=== PATIENT | female | born 1995 | race Caucasian/White ===

== ENCOUNTER 2020-06-02 15:54 | Emergency (ER) | payer BC ==
--- NOTE | 2020-06-02 16:11 | ERPHSYRPT ---
- History of Present Illness Time Seen by Provider: 06/02/20 16:11 Source: patient Exam Limitations: no limitations Physician History: This is a 25-year-old white female who presents with 5-day history of worsening flu symptoms including cough, sore throat, muscle aches, fever, headache, mild shortness of breath, nausea and loss of taste and smell. She has no known ex posure to individuals who have tested positive for COVID-19 virus. Timing/Duration: day(s) (5) Cough Quality/Degree: mild Possible Cause: no prior episodes Associated Symptoms: chills, cough, headache, shortness of breath, sore throat Allergies/Adverse Reactions: No Known Drug Allergies Allergy (Unverified 06/02/20 16:20) Home Medications: Buprenorphine HCl/Naloxone HCl [Buprenorphin-Naloxon 8-2 mg Sl] 1 ea DAILY 06/02/20 [History] Travel Risk - International Travel Have you traveled outside of the country in past 3 weeks: No - Coronavirus Screening Are you exhibiting any of the following symptoms?: Yes Symptoms: Cough: New Onset, Shortness of Breath, Loss of Taste or Smell, Headaches/Body Aches/Fatigue Close contact with a COVID-19 positive Pt in past 14-21 Days: No - Review of Systems Constitutional: Chills, Weakness Eyes: No Symptoms Ears, Nose, & Throat: Throat Pain Respiratory: Cough, Dyspnea Cardiac: No Symptoms Abdominal/Gastrointestinal: No Symptoms Genitourinary Symptoms: No Symptoms Musculoskeletal: Arthralgias, Myalgias Skin: No Symptoms Neurological: No Symptoms Psychological: No Symptoms Endocrine: No Symptoms Hematologic/Lymphatic: No Symptoms Immunological/Allergic: No Symptoms All Other Systems: Reviewed and Negative - Past Medical History Pertinent Past Medical History: No Neurological History: No Pertinent History ENT History: No Pertinent History Cardiac History: No Pertinent History Respiratory History: No Pertinent History Endocrine Medical History: No Pertinent History Musculoskeletal History: No Pertinent History GI Medical History: No Pertinent History History: No Pertinent History Psycho-Social History: No Pertinent History Female Reproductive Disorders: No Pertinent History - Past Surgical History Past Surgical History: No Neuro Surgical History: No Pertinent History Cardiac: No Pertinent History Respiratory: No Pertinent History Gastrointestinal: No Pertinent History Genitourinary: No Pertinent History Musculoskeletal: No Pertinent History Female Surgical History: No Pertinent History - Nursing Vital Signs Nursing Vital Signs: Initial Vital Signs Temperature 98.8 F 09/13/20 16:13 Pulse Rate 87 06/02/20 16:13 Respiratory Rate 18 06/02/20 16:13 Blood Pressure 147/89 06/02/20 16:13 O2 Sat by Pulse Oximetry 99 06/02/20 16:13 Pain Scale Pain Intensity 7 - Physical Exam General Appearance: no apparent distress, alert, anxiety Eye Exam: PERRL/EOMI, eyes nml inspection Ears, Nose, Throat Exam: normal ENT inspection, moist mucous membranes Neck Exam: normal inspection, non-tender, supple, full range of motion Respiratory Exam: normal breath sounds, lungs clear, airway intact, No chest tenderness, No respiratory distress Cardiovascular Exam: regular rate/rhythm, normal heart sounds, normal peripheral pulses Gastrointestinal/Abdomen Exam: soft, normal bowel sounds, No tenderness Pelvic Exam: not done Rectal Exam: not done Extremity Exam: normal inspection, normal range of motion, pelvis stable Neurologic Exam: alert, oriented x 3, cooperative, 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 nml as tested, nml cerebellar function, nml station & gait, sensation nml Skin Exam: normal color, warm, dry Lymphatic Exam: No adenopathy SpO2 Interpretation: normal O2 Delivery: Room Air Ordered Tests: Active Orders 24 hr Category Date Time Status IV Insertion STAT Care 06/02/20 16:14 Active CHEST 1 VIEW (PORTABLE) Stat Exams 06/02/20 16:14 Taken BLOOD CULTURE Stat Lab 06/02/20 16:14 Ordered CBC W DIFF Stat Lab 06/02/20 16:30 Completed CMP Stat Lab 06/02/20 16:30 Completed HCG,QUALITATIVE URINE Stat Lab 06/02/20 16:30 Completed Lactic Acid Stat Lab 06/02/20 16:14 Completed Hill Screen Stat Lab 06/02/20 16:30 Completed UA W/RFX UR CULTURE Stat Lab 06/02/20 16:30 Completed Medication Summary Discontinued Medications Generic Name Dose Route Start Last Admin Trade Name Freq PRN Reason Stop Dose Admin Sodium Chloride 1,000 mls @ 999 mls/hr 06/02/20 16:14 06/02/20 16:50 Sodium Chloride 0.9% 1000 Ml IV 06/02/20 17:14 999 mls/hr .Q1H1M STA Administration Sodium Chloride Confirm 06/02/20 16:44 Sodium Chloride 0.9% 1000 Ml Administered 06/02/20 16:45 Dose 1,000 mls @ ud .ROUTE .STK-MED ONE Lab/Rad Data: Laboratory Result Diagrams 06/02/20 16:30 06/02/20 16:30 Laboratory Results 06/02/20 06/02/20 06/02/20 Range/Units 16:30 16:30 16:30 WBC (4.0-10.5) K/mm3 RBC (4.1-5.4) M/mm3 Hgb (12.0-16.0) gm/dl Hct (35-47) % MCV (78-100) fl MCH (26-32) pg MCHC (32-36) g/dl RDW (11.5-14.0) % Plt Count (150-450) K/mm3 MPV (7.5-11.0) fl Gran % (36.0-66.0) % Eos # (Auto) (0-0.5) Absolute Lymphs (auto) (1.0-4.6) Absolute Monos (auto) (0.0-1.3) Lymphocytes % (24.0-44.0) % Monocytes % (0.0-12.0) % Eosinophils % (0.00-5.0) % Basophils % (0.0-0.4) % Absolute Granulocytes (1.4-6.9) Basophils # (0-0.4) Sodium (137-145) mmol/L Potassium (3.5-5.1) mmol/L Chloride (98-107) mmol/L Carbon Dioxide (22-30) mmol/L Anion Gap (5-15) MEQ/L BUN (7-17) mg/dL Creatinine (0.52-1.04) mg/dL Estimated GFR ML/MIN Glucose (74-106) mg/dL Lactic Acid (0.4-2.0) Calcium (8.4-10.2) mg/dL Total Bilirubin (0.2-1.3) mg/dL AST (14-36) U/L ALT (0-35) U/L Alkaline Phosphatase (38-126) U/L Serum Total Protein (6.3-8.2) g/dL Albumin (3.5-5.0) g/dL Urine Color YELLOW (YELLOW) Urine Appearance CLOUDY (CLEAR) Urine pH 7.0 (5-6) Ur Specific Marbury 1.014 (1.005-1.025) Urine Protein NEGATIVE (Negative) Urine Ketones NEGATIVE (NEGATIVE) Urine Blood NEGATIVE (0-5) Vickey/ul Urine Nitrite NEGATIVE (NEGATIVE) Urine Bilirubin NEGATIVE (NEGATIVE) Urine Urobilinogen NEGATIVE (0-1) mg/dL Ur Leukocyte Esterase NEGATIVE (NEGATIVE) Urine WBC (Auto) NONE (0-5) /HPF Urine RBC (Auto) NONE (0-2) /HPF U Epithel Cells (Auto) RARE (FEW) /HPF Urine Bacteria (Auto) NONE (NEGATIVE) /HPF Amorphous Crystals FEW (NEGATIVE) /HPF Urine Mucus (Auto) SLIGHT (NEGATIVE) /HPF Urine Culture Reflexed NO (NO) Urine Glucose NEGATIVE (NEGATIVE) mg/dL Urine HCG, Qual NEGATIVE (Negative) Monoscreen (Negative) Influenza Type A Ag NEGATIVE (NEGATIVE) Influenza Type B Ag NEGATIVE (NEGATIVE) RSV (PCR) NEGATIVE (Negative) Group A Strep Antibody NOT DETECTED (NEGATIVE) 06/02/20 06/02/20 06/02/20 Range/Units 16:30 16:30 16:30 WBC 10.1 (4.0-10.5) K/mm3 RBC 4.12 (4.1-5.4) M/mm3 Hgb 13.7 (12.0-16.0) gm/dl Hct 41.7 (35-47) % MCV 101.2 H (78-100) fl MCH 33.3 H (26-32) pg MCHC 32.9 (32-36) g/dl RDW 13.0 (11.5-14.0) % Plt Count 231 (150-450) K/mm3 MPV 11.1 H (7.5-11.0) fl Gran % 53.0 (36.0-66.0) % Eos # (Auto) 1.33 H (0-0.5) Absolute Lymphs (auto) 2.51 (1.0-4.6) Absolute Monos (auto) 0.84 (0.0-1.3) Lymphocytes % 24.9 (24.0-44.0) % Monocytes % 8.3 (0.0-12.0) % Eosinophils % 13.2 H (0.00-5.0) % Basophils % 0.6 (0.0-0.4) % Absolute Granulocytes 5.36 (1.4-6.9) Basophils # 0.06 (0-0.4) Sodium 137 (137-145) mmol/L Potassium 3.5 (3.5-5.1) mmol/L Chloride 103 (98-107) mmol/L Carbon Dioxide 27 (22-30) mmol/L Anion Gap 10.1 (5-15) MEQ/L BUN 7 (7-17) mg/dL Creatinine 0.47 L (0.52-1.04) mg/dL Estimated GFR > 60.0 ML/MIN Glucose 93 (74-106) mg/dL Lactic Acid (0.4-2.0) Calcium 9.2 (8.4-10.2) mg/dL Total Bilirubin 0.30 (0.2-1.3) mg/dL AST 26 (14-36) U/L ALT 17 (0-35) U/L Alkaline Phosphatase 53 (38-126) U/L Serum Total Protein 7.1 (6.3-8.2) g/dL Albumin 4.4 (3.5-5.0) g/dL Urine Color (YELLOW) Urine Appearance (CLEAR) Urine pH (5-6) Ur Specific Marbury (1.005-1.025) Urine Protein (Negative) Urine Ketones (NEGATIVE) Urine Blood (0-5) Vickey/ul Urine Nitrite (NEGATIVE) Urine Bilirubin (NEGATIVE) Urine Urobilinogen (0-1) mg/dL Ur Leukocyte Esterase (NEGATIVE) Urine WBC (Auto) (0-5) /HPF Urine RBC (Auto) (0-2) /HPF U Epithel Cells (Auto) (FEW) /HPF Urine Bacteria (Auto) (NEGATIVE) /HPF Amorphous Crystals (NEGATIVE) /HPF Urine Mucus (Auto) (NEGATIVE) /HPF Urine Culture Reflexed (NO) Urine Glucose (NEGATIVE) mg/dL Urine HCG, Qual (Negative) Monoscreen NEGATIVE (Negative) Influenza Type A Ag (NEGATIVE) Influenza Type B Ag (NEGATIVE) RSV (PCR) (Negative) Group A Strep Antibody (NEGATIVE) 06/02/20 Range/Units 16:14 WBC (4.0-10.5) K/mm3 RBC (4.1-5.4) M/mm3 Hgb (12.0-16.0) gm/dl Hct (35-47) % MCV (78-100) fl MCH (26-32) pg MCHC (32-36) g/dl RDW (11.5-14.0) % Plt Count (150-450) K/mm3 MPV (7.5-11.0) fl Gran % (36.0-66.0) % Eos # (Auto) (0-0.5) Absolute Lymphs (auto) (1.0-4.6) Absolute Monos (auto) (0.0-1.3) Lymphocytes % (24.0-44.0) % Monocytes % (0.0-12.0) % Eosinophils % (0.00-5.0) % Basophils % (0.0-0.4) % Absolute Granulocytes (1.4-6.9) Basophils # (0-0.4) Sodium (137-145) mmol/L Potassium (3.5-5.1) mmol/L Chloride (98-107) mmol/L Carbon Dioxide (22-30) mmol/L Anion Gap (5-15) MEQ/L BUN (7-17) mg/dL Creatinine (0.52-1.04) mg/dL Estimated GFR ML/MIN Glucose (74-106) mg/dL Lactic Acid 0.8 (0.4-2.0) Calcium (8.4-10.2) mg/dL Total Bilirubin (0.2-1.3) mg/dL AST (14-36) U/L ALT (0-35) U/L Alkaline Phosphatase (38-126) U/L Serum Total Protein (6.3-8.2) g/dL Albumin (3.5-5.0) g/dL Urine Color (YELLOW) Urine Appearance (CLEAR) Urine pH (5-6) Ur Specific Mar[place] (1.005-1.025) Urine Protein (Negative) Urine Ketones (NEGATIVE) Urine Blood (0-5) Vickey/ul Urine Nitrite (NEGATIVE) Urine Bilirubin (NEGATIVE) Urine Urobilinogen (0-1) mg/dL Ur Leukocyte Esterase (NEGATIVE) Urine WBC (Auto) (0-5) /HPF Urine RBC (Auto) (0-2) /HPF U Epithel Cells (Auto) (FEW) /HPF Urine Bacteria (Auto) (NEGATIVE) /HPF Amorphous Crystals (NEGATIVE) /HPF Urine Mucus (Auto) (NEGATIVE) /HPF Urine Culture Reflexed (NO) Urine Glucose (NEGATIVE) mg/dL Urine HCG, Qual (Negative) Monoscreen (Negative) Influenza Type A Ag (NEGATIVE) Influenza Type B Ag (NEGATIVE) RSV (PCR) (Negative) Group A Strep Antibody (NEGATIVE) - Progress Progress: re-examined Air Movement: good Progress Note: 06/02/20 18:39 X-ray shows no acute pulmonary process. Blood Culture(s) Obtained: Yes Antibiotics given: Yes Counseled pt/family regarding: lab results, diagnosis, need for follow-up, rad results - Departure Departure Disposition: Home Clinical Impression: Bronchitis Condition: Stable Critical Care Time: No Referrals: DOCTOR,NO FAMILY [Primary Care Provider] - Additional Instructions: Drink plenty of fluids. Avoid exposure to any kind of smoke. Take your medication as prescribed. Quarantine yourself as directed until you obtain the results of your COVID-19 test. Return to the emergency department if your symptoms worsen. Prescriptions: Hydrocodone Bit/Acetaminophen [Hydrocodone-Acetaminophen Soln] 10 ml PO Q6H #120 ml Azithromycin 250 mg [Zithromax 250 MG TABLET] 250 mg PO ZPACK #6 tablet
[2020-06-02] MEDS ORDERED: Sodium Chloride 0.9% 1000 ML 1,000 ML IV STA (16:14)
[2020-06-02] MEDS ORDERED: Sodium Chloride 0.9% 1000 ML 1,000 ML ONE (16:44)
[2020-06-02 16:58] LABS: Absolute Neutrophil Ct (ANC) 5.36 (1.4-6.9); BASOPHIL % 0.6 % (0.0-0.4); Basophil (Absolute #) 0.06 (0-0.4); Eosinophil % 13.2 % (0.00-5.0); Eosinophil (Absolute #) 1.33 (0-0.5); Hematocrit 41.7 % (35-47); Hemoglobin 13.7 gm/dl (12.0-16.0); Lymphocyte (Absolute #) 2.51 (1.0-4.6); Lymphocytes % 24.9 % (24.0-44.0); Mean Cell Volume 101.2 fl (78-100); Mean Corpuscular Hemoglobin 33.3 pg (26-32); Mean Corpuscular Hgb Concent. 32.9 g/dl (32-36); Mean Platelet Volume 11.1 fl (7.5-11.0); Monocyte (Absolute #) 0.84 (0.0-1.3); Monocytes % 8.3 % (0.0-12.0); Platelet Count 231 K/mm3 (150-450); Red Blood Count 4.12 M/mm3 (4.1-5.4); White Blood Count 10.1 K/mm3 (4.0-10.5)
[2020-06-02 17:10] LABS: ALBUMIN 4.4 g/dL (3.5-5.0); ALKALINE PHOSPHATASE 53 U/L (38-126); ANION GAP 10.1 MEQ/L (5-15); BLOOD UREA NITROGEN 7 mg/dL (7-17); CHLORIDE 103 mmol/L (98-107); Calcium 9.2 mg/dL (8.4-10.2); Carbon Dioxide 27 mmol/L (22-30); Creatinine 1 0.47 mg/dL (0.52-1.04); EST GLOMERULAR FILTRATION RATE > 60.0 ML/MIN; Glucose 93 mg/dL (74-106); Potassium 3.5 mmol/L (3.5-5.1); SGOT/AST 26 U/L (14-36); SGPT/ALT 17 U/L (0-35); SODIUM 137 mmol/L (137-145); Total Protein 7.1 g/dL (6.3-8.2)
[2020-06-02 17:11] LABS: Amourphous Crystal FEW /HPF (NEGATIVE); Appearance CLOUDY (CLEAR); Bilirubin NEGATIVE (NEGATIVE); Blood NEGATIVE Ery/ul (0-5); Epithelial Cells RARE /HPF (FEW); Glucose NEGATIVE (NEGATIVE); Ketones NEGATIVE (NEGATIVE); Leukocyte Esterase NEGATIVE (NEGATIVE); Mucus SLIGHT /HPF (NEGATIVE); Nitrite NEGATIVE (NEGATIVE); Protein,Urine Dip NEGATIVE (Negative); Specific Gravity 1.014 (1.005-1.025); Urobilinogen NEGATIVE mg/dL (0-1)
[2020-06-02 17:17] LABS: Group A Strep NOT DETECTED (NEGATIVE)
[2020-06-02 17:26] LABS: INFLUENZA A NEGATIVE (NEGATIVE); INFLUENZA B NEGATIVE (NEGATIVE); RESPIRATORY SYNCTIAL VIRUS NEGATIVE (Negative)
[2020-06-02] MEDS ORDERED: ROCEPHIN 1 Gm-D5w 50 ml Bag** 1 G/50 ML IVPB IV STA (18:43)
[2020-06-02] MEDS ORDERED: HYDROCODONE-ACETAMIN 2.5-108/5 ML SOLUTION ONE (19:15)
[2020-06-02] MEDS ORDERED: ROCEPHIN 1 Gm-D5w 50 ml Bag** 1 G/50 ML IVPB IV ONE (19:15)
[2020-06-02] MEDS: HYDROCODONE-ACETAMIN 2.5-108/5 ML SOLUTION PO STA ×2 (19:16→19:25)
[2020-06-02 19:27] VITALS: BP 119/85; PULSE 69; O2SAT 99
[2020-06-02] MEDS ORDERED: Tessalon Perles 100 MG PO ONE ×2 (19:28→19:30)
--- NOTE | 2020-06-03 07:56 | XRAY ---
Exam: AP portable chest radiograph from 06/02/2020. Comparison: None. Indication: 25-year-old female with cough/fever. Findings: The heart size and contour are normal. The rosalie and mediastinal structures appear unremarkable. Inspiratory effort is satisfactory. No air space infiltrates, vascular congestion, pneumothorax, or pleural fluid is seen. Slight convexity of the mid thoracic spine toward the right seen. No acute osseous process is noted. A couple metallic densities are partially seen at the superior margin of the film near the base of the neck which are likely external to the patient. Correlate clinically. Impression: 1. No infiltrates to suggest focal pneumonia or other acute cardiopulmonary disease is seen.
== END 2020-06-02 20:21 | disposition home or self-care (01) ==
LOC: ED 15:54
DX: J40 Bronchitis, not specified as acute or chronic (principal); R50.9 Fever, unspecified; J02.9 Acute pharyngitis, unspecified; R51 Headache; M79.18 Myalgia, other site; R06.02 Shortness of breath; R11.0 Nausea; R43.8 Other disturbances of smell and taste
CPT/HCPCS: 36000; 36415; 71045; 80053; 81001; 83605; 84703; 85025; 86308; 87040; 87631; 87651; 96360; 96365; 99284; U0003; J0696; A9270-GY

== ENCOUNTER 2024-01-22 05:43 | Emergency (ER) | payer OTHER ==
[2024-01-22 05:58] VITALS: RESP 18; TEMP 98.6; O2SAT 98
[2024-01-22] MEDS ORDERED: Adacel Vial IM ONE (06:06)
[2024-01-22 06:07] VITALS: BP 114/81; PULSE 53
[2024-01-22] MEDS: Adacel Vial IM ONE (06:08)
--- NOTE | 2024-01-22 06:09 | ERPHSYRPT ---
- History of Present Illness Time Seen by Provider: 01/22/24 06:04 Source: patient Exam Limitations: no limitations Patient Subjective Stated Complaint: pt states she was cleaning her cabinets and the handle went through her knee Triage Nursing Assessment: pt came into the er via wheelchair; pt transfer self to cot; c/o knee injury; 1 cm laceration present to left knee; minimal bleeding present; bruising present to left knee; good ROM to left knee and LLE; strong left pedal pulse; skin PDW; no respiratory distress present; vital wnl Physician History: pt states she was cleaning her cabinets and the handle went through her left knee Timing/Duration: today Severity: mild Associated Symptoms: denies symptoms Allergies/Adverse Reactions: coconut Allergy (Verified 01/22/24 05:47) Itching Home Medications: Buprenorphine HCl/Naloxone HCl [Buprenorphin-Naloxon 8-2 mg Sl] 1 ea PO BID 06/02/20 [History] Hx Tetanus, Diphtheria Vaccination/Date Given: No Hx Influenza Vaccination/Date Given: Yes Hx Pneumococcal Vaccination/Date Given: No Travel Risk - International Travel Have you traveled outside of the country in past 3 weeks: No - Emerging Infectious Disease Are you exhibiting symptoms associated with any current EIDs: No - Review of Systems Constitutional: No Symptoms Eyes: No Symptoms Ears, Nose, & Throat: No Symptoms Respiratory: No Symptoms Cardiac: No Symptoms Abdominal/Gastrointestinal: No Symptoms Genitourinary Symptoms: No Symptoms Musculoskeletal: Fall Skin: No Symptoms Neurological: No Symptoms Psychological: No Symptoms - Past Medical History Pertinent Past Medical History: No Neurological History: No Pertinent History ENT History: No Pertinent History Cardiac History: No Pertinent History Respiratory History: No Pertinent History Endocrine Medical History: No Pertinent History Musculoskeletal History: No Pertinent History GI Medical History: No Pertinent History History: No Pertinent History Psycho-Social History: No Pertinent History Female Reproductive Disorders: No Pertinent History - Past Surgical History Past Surgical History: No Neuro Surgical History: No Pertinent History Cardiac: No Pertinent History Respiratory: No Pertinent History Gastrointestinal: No Pertinent History Genitourinary: No Pertinent History Musculoskeletal: No Pertinent History Female Surgical History: No Pertinent History - Female History Hx Now: No - Social History Smoking Status: Light tobacco smoker Exposure to second hand smoke: Yes Drug Use: none Patient Lives Alone: No - Nursing Vital Signs Nursing Vital Signs: Initial Vital Signs Temperature 98.6 F 01/22/24 05:50 Pulse Rate 72 01/22/24 05:50 Respiratory Rate 18 01/22/24 05:50 Blood Pressure 139/89 01/22/24 05:50 O2 Sat by Pulse Oximetry 98 01/22/24 05:50 Pain Scale Pain Intensity 4 - Physical Exam General Appearance: no apparent distress Eye Exam: PERRL/EOMI Ears, Nose, Throat Exam: normal ENT inspection Neck Exam: normal inspection Respiratory Exam: normal breath sounds Cardiovascular Exam: regular rate/rhythm Gastrointestinal/Abdomen Exam: soft Back Exam: normal inspection Extremity Exam: normal inspection, lacerations (1 cm on left knee, superficial) Neurologic Exam: alert, oriented x 3, cooperative Skin Exam: normal color SpO2 Interpretation: normal SpO2: 98 O2 Delivery: Room Air Procedures - Laceration/Wound Repair Left Knee Time of Procedure: 06:06 Wound Location: Left (knee) Wound Length (cm): 1 Wound's Depth, Shape: superficial Wound Explored: clean Irrigated: Yes Hibiclens Prep: Yes Wound Repaired With: Steri-strips - Course Nursing assessment & vital signs reviewed: Yes Ordered Tests: Active Orders 24 hr Category Date Time Status Wound Care STAT Care 01/22/24 06:03 Active Medication Summary Generic Name Dose Route Start Last Admin Trade Name Freq PRN Reason Stop Dose Admin Diphtheria/Tetanus/Acell Pertussis 0.5 ml 01/22/24 06:03 Tdap --Diph,Pertuss(Acell),Tet Vac/Pf 0.5 Ml Vial IM 01/22/24 06:04 .ONCE ONE - Progress Progress: improved Counseled pt/family regarding: diagnosis, need for follow-up Medical Desision Making - Risk of complications Minimal Risk: Minimal risk of morbidity - Departure Departure Disposition: Home Clinical Impression: Laceration Laceration of left knee without complication Qualifiers: Encounter type: initial encounter Qualified Code(s): S81.012A - Laceration without foreign body, left knee, initial encounter Condition: Stable Critical Care Time: No Referrals: AUGUST HUGHES MD [Primary Care Provider] - Follow up/PCP as directed Instructions: Wound Care (DC) Additional Instructions: Discharge/Care Plan YAW CANALES was seen on 01/22/24 in the Emergency Room. The patient was counseled regarding Diagnosis,Lab results, Imaging studies, need for follow up and when to return to the Emergency Room. Prescriptions given: Discharge Note I have spoken with the patient and/or caregivers. I have explained the patient's condition, diagnosis and treatment plan based on the information available to me at this time. I have answered the patient's and/or caregiver's questions and addressed any concerns. The patient and/or caregivers have as good understanding of the patient's diagnosis, condition and treatment plan as can be expected at this point. The vital signs have been stable. The patient's condition is stable and appropriate for discharge from the emergency department. The patient will pursue further outpatient evaluation with the primary care physician or other designated or consulting physician as outlined in the discharge instructions. The patient and/or caregivers are agreeable to this plan of care and follow-up instructions have been explained in detail. The patient and/or caregivers have received these instruction. The patient/and or caregivers are aware that any significant change in condition or worsening of symptoms should prompt an immediate return to this or the closest emergency department or call 911. YAW CANALES was seen on 01/22/24 n the Emergency Room. At that time you were treated for an emergent condition, during your visit Laboratory, Radiology and/or other procedures may have been ordered. It is very important that you follow-up with your Primary Care Physician AUGUST HUGHES within the next 24-48 hours to review your Emergency Room visit and the final results of testing that was ordered. Some test results such as Urine Cultures, Blood Cultures, and other cultures if ordered will not be finalized for 24-48 hours. If you do not have a Primary Care Provider please call the medical records department at [phone] ext [phone] to obtain a copy of your results or you may sign into our patient portal to obtain these results by visiting us @ [email or web address] and completing the following steps: 1. Click on the Patient Portal link 2. Click the Patient Self Enrollment Link to complete the enrollment form and en tering your 3. Once the enrollment form is completed you will receive an email with a temporary ID and password at the email address you provided. 4. Next choose a user name and password. Your user name must be at least 4 characters long and your password must be at least 4 characters long. 5. Choose a security question from the list and provide your answer to the question. If you already have signed into the Health Portal you may access your Health Care Information 12/04 by the following steps: 1. Login to our website @ [email or web address] 2. Enter your original user name and password. FAQS The [facility] Health Portal is an online tool that contains your Lab Results, Radiology Reports, Visit History, Discharge Instructions and Health Summary Lab and Radiology Results will not be available for 72 hours on the portal. The Portal is a secure site, passwords are encryted and URLs are re-written so they cannot be copied and pasted. You and authorized family members are the only ones who can access your Portal. Also there is a timeout feature that protects your information if you leave the Portal page open. If you have technical difficulty please use the Contact Us link on the page this will allow you to submit any questions you have regarding the Portal or you may contact the Medical Record Department at [phone] ext [phone].
== END 2024-01-22 06:20 | disposition home or self-care (01) ==
LOC: ED 05:43
DX: S81.012A Laceration without foreign body, left knee, initial encounter (principal); W45.8XXA Other foreign body or object entering through skin, initial encounter; Y93.E9 Activity, other interior property and clothing maintenance; Z79.891 Long term (current) use of opiate analgesic; Z72.0 Tobacco use; Z23 Encounter for immunization
CPT/HCPCS: 90471; 90715; 99282

== ENCOUNTER 2025-08-09 08:57 | Emergency (ER) | payer OTHER ==
--- NOTE | 2025-08-09 09:01 | ERPHSYRPT ---
- History of Present Illness Time Seen by Provider: 08/09/25 09:00 Source: patient, family Exam Limitations: no limitations Physician History: This is a 30-year-old white female patient who arrives her private vehicle and is a patient of Dr. Hughes who recently moved from [place] to [facility] and has the complaint of vaginal bleeding with pelvic discomfort/pain. A few years ago the patient had an IUD placed by Dr. Perez in [facility]. In the last week the patient states she began having vaginal spotting followed by worsening bright red blood vaginally. There is been intermittent cramping and burning to the pelvic region. Patient denies chest pain. Patient denies shortness of breath. Patient denies diarrhea. Patient has had no nausea or vomiting symptoms. Patient has an appointment to see a [employer] pegger here in [facility] but not till August 2025. Timing/Duration: week(s) (1) Quality: burning, cramping Onset Location: pelvic pain Pain Radiation: none Severity of Pain-Max: mild Severity of Pain-Current: mild Sexual intercourse history: non-contributory Modifying Factors: Improves With: nothing Associated Symptoms: abdominal pain (Suprapubic/pelvic pain), vaginal discharge (Bleeding) Allergies/Adverse Reactions: coconut Allergy (Verified 08/09/25 09:10) Itching Home Medications: Buprenorphine HCl/Naloxone HCl [Buprenorphin-Naloxon 8-2 mg Sl] 1 ea PO BID 06/02/20 [History] Hx Tetanus, Diphtheria Vaccination/Date Given: No Hx Influenza Vaccination/Date Given: Yes Hx Pneumococcal Vaccination/Date Given: No Travel Risk - International Travel Have you traveled outside of the country in past 3 weeks: No - Emerging Infectious Disease Are you exhibiting symptoms associated with any current EIDs: No - Review of Systems Constitutional: No Symptoms Eyes: No Symptoms Ears, Nose, & Throat: No Symptoms Respiratory: No Symptoms Cardiac: No Symptoms Abdominal/Gastrointestinal: Abdominal Pain (Pelvic/suprapubic region) Genitourinary Symptoms: Vaginal Bleeding (Spotting to mild bleeding) Skin: No Symptoms Neurological: No Symptoms Psychological: No Symptoms Endocrine: No Symptoms Hematologic/Lymphatic: No Symptoms Immunological/Allergic: No Symptoms All Other Systems: Reviewed and Negative - Past Medical History Pertinent Past Medical History: No Neurological History: No Pertinent History ENT History: No Pertinent History Cardiac History: No Pertinent History Respiratory History: No Pertinent History Endocrine Medical History: No Pertinent History Musculoskeletal History: No Pertinent History GI Medical History: No Pertinent History History: No Pertinent History Psycho-Social History: No Pertinent History Female Reproductive Disorders: No Pertinent History - Past Surgical History Past Surgical History: No Neuro Surgical History: No Pertinent History Cardiac: No Pertinent History Respiratory: No Pertinent History Gastrointestinal: No Pertinent History Genitourinary: No Pertinent History Musculoskeletal: No Pertinent History Female Surgical History: No Pertinent History - Social History Smoking Status: Light tobacco smoker Exposure to second hand smoke: Yes Drug Use: none Patient Lives Alone: No - Social Determinants of Health Will the patient participate in the screening: Yes Do you worry about a steady place to live?: No In the past 12 months,have you had to go without utilities?: No Transportation Issues: No Has anyone in your support network made you feel unsafe?: No Have you or anyone in your house had to go w/o enough food: No - Nursing Vital Signs Nursing Vital Signs: Initial Vital Signs Temperature 98.4 F 08/09/25 08:58 Pulse Rate 78 08/09/25 08:58 Respiratory Rate 16 08/09/25 08:58 Blood Pressure 142/78 08/09/25 08:58 O2 Sat by Pulse Oximetry 98 08/09/25 08:58 Pain Scale Pain Intensity 3 - Physical Exam General Appearance: no apparent distress, alert Eye Exam: PERRL/EOMI, eyes nml inspection Ears, Nose, Throat Exam: normal ENT inspection, moist mucous membranes Neck Exam: normal inspection, non-tender Respiratory Exam: normal breath sounds, lungs clear, airway intact, No chest tenderness, No respiratory distress Cardiovascular Exam: regular rate/rhythm, normal heart sounds, normal peripheral pulses Gastrointestinal/Abdomen Exam: soft, normal bowel sounds, tenderness (Mild suprapubic tenderness to palpation), guarding (Mild suprapubic to palpation), No rebound Pelvic Exam: not done Rectal Exam: not done Back Exam: normal inspection, normal range of motion, No CVA tenderness, No vertebral tenderness Extremity Exam: normal inspection, normal range of motion, pelvis stable Neurologic Exam: alert, oriented x 3, cooperative, quality process lead II-XII nml as tested, normal mood/affect, nml cerebellar function, nml station & gait, sensation nml Skin Exam: normal color, warm, dry Lymphatic Exam: No adenopathy SpO2 Interpretation: normal O2 Delivery: Room Air - Course Nursing assessment & vital signs reviewed: Yes Ordered Tests: Active Orders 24 hr Category Date Time Status ABDOMEN AND PELVIS W/0 CONTRAS [CT] Stat Exams 08/09/25 09:40 Completed CBC W DIFF Stat Lab 08/09/25 09:50 Completed CMP Stat Lab 08/09/25 09:50 Completed CULTURE,URINE Stat Lab 08/09/25 09:39 Received HCG QUALITATIVE, SERUM Stat Lab 08/09/25 09:50 Completed PROTIME WITH INR Stat Lab 08/09/25 09:50 Completed UA W/RFX UR CULTURE Stat Lab 08/09/25 09:39 Completed Medication Summary Discontinued Medications Generic Name Dose Route Start Last Admin Trade Name Freq PRN Reason Stop Dose Admin Ceftriaxone Sodium 1,000 mg 08/09/25 11:49 08/09/25 11:55 Ceftriaxone Sodium 1000 Mg Inj Vial IM 08/09/25 11:50 1,000 mg STAT ONE Administration Ceftriaxone Sodium Confirm 08/09/25 11:54 Ceftriaxone Sodium 1000 Mg Inj Vial Administered 08/09/25 11:55 Dose 1,000 mg .ROUTE .STK-MED ONE Lidocaine HCl Confirm 08/09/25 11:54 Lidocaine Hcl 1% 20 Ml Mdv 20 Ml Ml Administered 08/09/25 11:55 Dose 1 ml .ROUTE .STK-MED ONE Lab/Rad Data: Laboratory Result Diagrams 08/09/25 09:50 08/09/25 09:50 Laboratory Results 08/09/25 08/09/25 08/09/25 Range/Units 09:50 09:50 09:50 WBC (3.98-10.04) x10^3/uL RBC (3.93-5.22) x10^6/uL Hgb (11.2-15.7) g/dL Hct (34.1-44.9) % MCV (79.4-94.8) fL MCH (25.6-32.2) pg MCHC (32.2-35.5) g/dL RDW (11.7-14.4) % Plt Count (182-369) x10^3/uL MPV (9.4-12.3) fL Gran % (34.0-71.1) % Immature Gran % (Auto) (0.001-0.429) % Nucleat RBC Rel Count (0.00-0.2) % Eos # (Auto) (0.04-0.36) x10^3/uL Immature Gran # (Auto) (0.001-0.031) x10^3u/L Absolute Lymphs (auto) (1.18-3.74) x10^3/uL Absolute Monos (auto) (0.24-0.86) x10^3/uL Absolute Nucleated RBC (0.00-0.012) x10^3u/L Lymphocytes % (19.3-51.7) % Monocytes % (4.7-12.5) % Eosinophils % (0.7-5.8) % Basophils % (0.1-1.2) % Absolute Granulocytes (1.56-6.13) x10^3/uL Basophils # (0.01-0.08) x10^3/uL PT 11.4 (9.4-12.5) SECONDS INR 1.02 (0.8-3.0) Sodium 138 (135-145) mmol/L Potassium 3.8 (3.5-5.1) mmol/L Chloride 103 (98-107) mmol/L Carbon Dioxide 28 (22-30) mmol/L Anion Gap 11.0 (5-15) MEQ/L BUN 11 (7-17) mg/dL Creatinine 0.59 (0.52-1.04) mg/dL Estimated GFR 124.3 ML/MIN Glucose 73 L (74-106) mg/dL Calcium 8.9 (8.4-10.2) mg/dL Total Bilirubin 0.40 (0.2-1.3) mg/dL AST 27 (14-36) U/L ALT 19 (0-35) U/L Alkaline Phosphatase 44 (38-126) U/L Serum Total Protein 7.3 (6.3-8.2) g/dL Albumin 4.6 (3.5-5.0) g/dL Serum HCG, Qual NEGATIVE (NEGATIVE) Urine Color (Yellow) Urine Appearance (Clear) Urine pH (4.6-8.0) Ur Specific Hamilton (1.005-1.030) Urine Protein (Negative) Urine Glucose (UA) (Negative) mg/dL Urine Ketones (Negative) Urine Blood (Negative) Urine Nitrite (Negative) Urine Bilirubin (Negative) Urine Urobilinogen (0.2) mg/dL Ur Leukocyte Esterase (Negative) U Hyaline Cast (Auto) (0-2) /LPF Urine Microscopic RBC (0-5) /HPF Urine Microscopic WBC (0-5) /HPF Ur Epithelial Cells (None Seen) /HPF Urine Bacteria (None Seen) /HPF Urine Culture Reflexed (NO) 08/09/25 08/09/25 Range/Units 09:50 09:39 WBC 4.4 (3.98-10.04) x10^3/uL RBC 3.84 L (3.93-5.22) x10^6/uL Hgb 12.5 (11.2-15.7) g/dL Hct 38.0 (34.1-44.9) % MCV 99.0 H (79.4-94.8) fL MCH 32.6 H (25.6-32.2) pg MCHC 32.9 (32.2-35.5) g/dL RDW 11.9 (11.7-14.4) % Plt Count 213 (182-369) x10^3/uL MPV 11.3 (9.4-12.3) fL Gran % 47.7 (34.0-71.1) % Immature Gran % (Auto) 0.2 (0.001-0.429) % Nucleat RBC Rel Count 0.0 (0.00-0.2) % Eos # (Auto) 0.44 H (0.04-0.36) x10^3/uL Immature Gran # (Auto) 0.01 (0.001-0.031) x10^3u/L Absolute Lymphs (auto) 1.40 (1.18-3.74) x10^3/uL Absolute Monos (auto) 0.37 (0.24-0.86) x10^3/uL Absolute Nucleated RBC 0.00 (0.00-0.012) x10^3u/L Lymphocytes % 32.1 (19.3-51.7) % Monocytes % 8.5 (4.7-12.5) % Eosinophils % 10.1 H (0.7-5.8) % Basophils % 1.4 H (0.1-1.2) % Absolute Granulocytes 2.08 (1.56-6.13) x10^3/uL Basophils # 0.06 (0.01-0.08) x10^3/uL PT (9.4-12.5) SECONDS INR (0.8-3.0) Sodium (135-145) mmol/L Potassium (3.5-5.1) mmol/L Chloride (98-107) mmol/L Carbon Dioxide (22-30) mmol/L Anion Gap (5-15) MEQ/L BUN (7-17) mg/dL Creatinine (0.52-1.04) mg/dL Estimated GFR ML/MIN Glucose (74-106) mg/dL Calcium (8.4-10.2) mg/dL Total Bilirubin (0.2-1.3) mg/dL AST (14-36) U/L ALT (0-35) U/L Alkaline Phosphatase (38-126) U/L Serum Total Protein (6.3-8.2) g/dL Albumin (3.5-5.0) g/dL Serum HCG, Qual (NEGATIVE) Urine Color Red A (Yellow) Urine Appearance Turbid A (Clear) Urine pH 6.5 (4.6-8.0) Ur Specific [place] 1.020 (1.005-1.030) Urine Protein 100 A (Negative) Urine Glucose (UA) Negative (Negative) mg/dL Urine Ketones Negative (Negative) Urine Blood Large A (Negative) Urine Nitrite Negative (Negative) Urine Bilirubin Small A (Negative) Urine Urobilinogen 1.0 A (0.2) mg/dL Ur Leukocyte Esterase Moderate A (Negative) U Hyaline Cast (Auto) NONE SEEN (0-2) /LPF Urine Microscopic RBC >100 A (0-5) /HPF Urine Microscopic WBC 21-50 A (0-5) /HPF Ur Epithelial Cells None Seen (None Seen) /HPF Urine Bacteria Few A (None Seen) /HPF Urine Culture Reflexed YES (NO) - Progress Progress: re-examined, unchanged Air Movement: good Progress Note: 08/09/25 09:45 My medical decision making and the assignment of moderate complexity of this patient's medical issue today is based on review of the patient's past medical history, reviewed patient's medication list, reviewed patient drug allergy list, history present illness and physical findings on examination. The workup in this patient includes CBC, CMP, amylase, lipase, urinalysis, test, CT scan of the abdomen pelvis without contrast and a PT/INR. Differential diagnosis includes but is not limited to urinary tract infection, , IUD dislodgment, acute intra-abdominal/pelvic abnormality 08/09/25 12:39 I interpreted the patient's laboratory data results. Based on laboratory data results, the patient has significant urinary tract infection. The CT scan of the abdomen pelvis without contrast was interpreted by the radiologist and I reviewed the impression. The impression states normal CT scan of the abdomen pelvis without contrast with incidental IUD. The findings were discussed with the patient. Blood Culture(s) Obtained: No Antibiotics given: Yes Counseled pt/family regarding: lab results, diagnosis, need for follow-up, rad results Medical Desision Making - Diagnostic Testing Diagnostic test were ordered, analyzed, and reviewed by me: Yes Radiological Interpretation: Reviewed by me, Teleradiologist Report - Risk of complications Low Risk: Low risk of morbidity from additional dx testing or treatment The pt has a mod risk of morbidity or mortality based on: Need for prescription drug management - Departure Departure Disposition: Home Clinical Impression: UTI (urinary tract infection) Condition: Stable Critical Care Time: No Referrals: AUGUST HUGHES MD [Primary Care Provider, [facility]] - Follow up/PCP as directed Additional Instructions: Drink plenty of fluids. Take your antibiotics as prescribed. Call your primary care provider today, 08/09/2025, to make arrangements for follow-up appointment to be seen in the next 3 to 5 days. Prescriptions: Cefdinir 300 mg PO BID #14 cap
[2025-08-09 09:17] VITALS: TEMP 98.4
[2025-08-09 09:52] LABS: BASOPHIL % 1.4 % (0.1-1.2); Basophil (Absolute #) 0.06 x10^3/uL (0.01-0.08); Eosinophil (Absolute #) 0.44 x10^3/uL (0.04-0.36); Hematocrit 38.0 % (34.1-44.9); Hemoglobin 12.5 g/dL (11.2-15.7); IMMATURE GRAN # 0.01 x10^3u/L (0.001-0.031); IMMATURE GRAN % 0.2 % (0.001-0.429); Lymphocyte (Absolute #) 1.40 x10^3/uL (1.18-3.74); Mean Corpuscular Hemoglobin 32.6 pg (25.6-32.2); Mean Corpuscular Hgb Concent. 32.9 g/dL (32.2-35.5); Monocyte (Absolute #) 0.37 x10^3/uL (0.24-0.86); NUCLEATED RBC # 0.00 x10^3u/L (0.00-0.012); NUCLEATED RBC % 0.0 % (0.00-0.2); Platelet Count 213 x10^3/uL (182-369); Red Blood Count 3.84 x10^6/uL (3.93-5.22); White Blood Count 4.4 x10^3/uL (3.98-10.04)
[2025-08-09 10:04] LABS: HCG SERUM TEST NEGATIVE (NEGATIVE)
[2025-08-09 10:06] LABS: Calcium 8.9 mg/dL (8.4-10.2); Carbon Dioxide 28.0 mmol/L (22-30); Creatinine 1 0.59 mg/dL (0.52-1.04); EST GLOMERULAR FILTRATION RATE 124.3 ML/MIN; Glucose 73.0 mg/dL (74-106); INR 1.02 (0.8-3.0); PROTIME 11.4 SECONDS (9.4-12.5); Potassium 3.8 mmol/L (3.5-5.1); SGOT/AST 27.0 U/L (14-36); SGPT/ALT 19.0 U/L (0-35); Total Protein 7.3 g/dL (6.3-8.2)
[2025-08-09 10:48] LABS: Glucose, Urine Negative (Negative); Protein,Urine Dip 100 (Negative); RBC >100 /HPF (0-5); WBC 21-50 /HPF (0-5)
[2025-08-09] MEDS ORDERED: Rocephin 1000 MG INJ ONE (11:54)
[2025-08-09] MEDS ORDERED: XYLOCAINE 1% HCL 20 ML MDV ONE (11:54)
--- NOTE | 2025-08-09 11:54 | XRAY ---
Indication: Pelvic pain. Vaginal bleeding. Multiple contiguous axial images obtained through the abdomen and pelvis without contrast. Comparison: None Lung bases clear. Heart not enlarged. Noncontrasted stomach and bowel loops appear nonobstructed. Appendectomy and cholecystectomy reported. Uterus demonstrates IUD in Situ. No free fluid/air. Remaining liver, pancreas, spleen, adrenal glands, kidneys, ureters, bladder, uterus, and aorta are unremarkable for noncontrast exam. Osseous structures intact. Impression: Normal CT abdomen/pelvis without contrast exam with incidental uterine IUD.
[2025-08-09] MEDS: Rocephin 1000 MG INJ IM ONE (11:55)
[2025-08-09 12:34] VITALS: RESP 18; O2SAT 99
[2025-08-09 13:08] VITALS: BP 93/76; PULSE 52
== END 2025-08-09 13:14 | disposition home or self-care (01) ==
LOC: ED 08:57
DX: N39.0 Urinary tract infection, site not specified (principal); N93.9 Abnormal uterine and vaginal bleeding, unspecified; R10.20 Pelvic and perineal pain unspecified side; Z79.891 Long term (current) use of opiate analgesic; Z72.0 Tobacco use